=== PATIENT | male | born 1995 | race Caucasian/White ===

== ENCOUNTER 2022-12-07 11:14 | Emergency (ER) | payer OTHER ==
[~2022-12-07] VITALS: Ht 180.3 cm; Wt 66.2 kg
[2022-12-07 11:21] VITALS: BP_SYST 128
--- NOTE | 2022-12-07 11:29 | NUR ---
PT TRIAGED AND ENDORSED TO [place] [facility]. PT BIBS FOR C/O RIGHT ARM ELBOW SWELLING X [address] SALINAS AT BEDSIDE TO ASSESS PT.
--- NOTE | 2022-12-07 11:36 | NUR ---
Patient arrived to ed 5 for c/o right elbow swelling. Patient woke up in morning and found right elbow swelling. He did not know what caused it and he does not remember to eat or drink anything that caused the swelling. Patient denies PMH. He is alert and oriented x4. Respiration even and unlabored. No shortness of breath. Will continue.
[2022-12-07 11:49] LABS: BASOPHILS % (AUTO) 0.4 % (0.0-2.0); EOSINOPHILS # (AUTO) 0.1 K/uL (0.0-0.4); EOSINOPHILS % (AUTO) 1.1 % (0.0-4.0); HEMATOCRIT 44.8 % (36-54); HEMOGLOBIN 15.5 g/dL (14.0-18.0); LYMPHOCYTES # (AUTO) 1.6 K/uL (1.0-5.5); LYMPHOCYTES % (AUTO) 28.8 % (20.5-51.5); MEAN CORPUSCULAR HEMOGLOBIN 31 pg (27-31); MEAN CORPUSCULAR HGB CONC 35 % (32-36); MEAN CORPUSCULAR VOLUME 89 fL (79.0-98.0); MONOCYTES # (AUTO) 0.3 K/uL (0.0-1.0); MONOCYTES % (AUTO) 5.3 % (1.7-9.3); NEUTROPHILS # (AUTO) 3.6 K/uL (1.8-7.7); NEUTROPHILS % (AUTO) 64.4 % (40.0-70.0); PLATELET COUNT (AUTO) 159 K/uL (130-430); RED BLOOD CELL COUNT(AUTO) 5.05 MIL/uL (4.2-6.2); RED CELL DISTRIBUTION WIDTH 13.9 % (9.0-15.0); WHITE BLOOD COUNT (AUTO) 5.6 K/uL (4.8-10.8)
[2022-12-07 12:00] LABS: ANION GAP 9 (5-15); CALCIUM 8.8 mg/dL (8.4-11.0); CHLORIDE 103 mmol/L (98-107); CREATININE 1.32 mg/dL (0.55-1.30); GFR AFRICAN AMERICAN 85 mL/min (>90); GLUCOSE 91 mg/dL (70-99); UREA NITROGEN, BLOOD 13 mg/dL (8-21)
[2022-12-07] MEDS ORDERED: BACITRACIN 1 GM OINT TP ONE (12:00)
[2022-12-07] MEDS ORDERED: DIPHTH,PERTUSS(ACELL),TET VAC 0.5 ML VIAL (Tdap) I.M. ONE (12:00)
[2022-12-07] MEDS ORDERED: LIDOCAINE 1%, 20 ML MDV 20 ML ONE (12:01)
[2022-12-07 12:05] LABS: ALANINE AMINOTRANSFERASE 92 U/L (12-78); ALBUMIN 4.1 g/dL (3.4-4.8); ASPARTATE AMINOTRANSFERASE 283 U/L (10-37); C-REACTIVE PROTEIN QUANT < 0.2 mg/dL (0-0.5); TOTAL BILIRUBIN 0.9 mg/dL (0.0-1.0)
--- NOTE | 2022-12-07 12:30 | NUR ---
DR. SALINAS AT BEDSIDE. PT RIGHT ELBOW ASPIRATED. COVERED WITH 4X4 AND ALFREDO BANDAGE FOR COMPRESSION. PT TOLERATED PROCEDURE WELL.
[2022-12-07] MEDS ORDERED: IBUP-1971 PO (12:40)
[2022-12-07] MEDS ORDERED: CLIN-22 PO (12:40)
[2022-12-07 13:41] VITALS: BP_SYST 132
--- NOTE | 2022-12-07 13:44 | NUR ---
Patient given written and verbal discharge instructions and verbalizes understanding. ER MD discussed with patient the results and treatment provided. Patient in stable condition. ID arm band removed. Rx of CLINDAMYCIN, MOTRIN given. Patient educated on pain management and to follow up with PMD. Pain Scale 2/10. Opportunity for questions provided and answered. Medication side effect fact sheet provided.
== END 2022-12-07 13:41 | disposition home or self-care (01) ==
LOC: SED 11:14
DX: M70.21 Olecranon bursitis, right elbow (principal); Z79.899 Other long term (current) drug therapy; Y93.89 Activity, other specified
CPT/HCPCS: 99284; 80053; 85025; 86140; 36415; 73080; 90715; 83605; 90471; J2001